=== PATIENT | female | born 1980 | race African-American/Black ===

== ENCOUNTER 2018-07-14 06:56 | Emergency (ER) | payer MEDICAID ==
[~2018-07-14] VITALS: Ht 157.5 cm; Wt 73.0 kg
[2018-07-14] MEDS ORDERED: IBUPROFEN 600MG TABLET PO ONE (10:45)
[2018-07-14 11:01] VITALS: BP 128/84
== END 2018-07-14 11:02 | disposition home or self-care (01) ==
LOC: ER 06:56
DX: S23.3XXA Sprain of ligaments of thoracic spine, initial encounter (principal); M54.2 Cervicalgia; F12.10 Cannabis abuse, uncomplicated; X58.XXXA Exposure to other specified factors, initial encounter; Y93.89 Activity, other specified; Y92.89 Other specified places as the place of occurrence of the external cause; Y99.8 Other external cause status
CPT/HCPCS: 99283